=== PATIENT | male | born 1980 ===

== ENCOUNTER 2019-02-18 11:09 | Emergency (ER) | payer OTHER ==
[2019-02-18 11:22] VITALS: BP 120/74
[2019-02-18] MEDS ORDERED: Fluorescein Sodium TOPICAL* 1 MG TEST STRIP OPHTHALMIC ONE (11:34)
[2019-02-18] MEDS ORDERED: Tetracaine 0.5% OPTH.SOL 4 ML* 1 DROP BTL RIGHT EYE ONE (11:34)
--- NOTE | 2019-02-18 11:59 | UC ---
Eye Complaint HPI - HPI Summary HPI Summary: Mr. Barksdale was in [place] recently visiting family over the holidays and was diagnosed with influenza. He has been taking ibuprofen and Tylenol. Yesterday his right eye started to hurt him and he was able to sleep during the night but it hurt worse in the morning. Over the course of the morning it has gradually gotten better and is mild at this point. He states that he feels the pain around his right eye. It hurts a little bit to move it. Now the only time it hurts is when he closes his eye, he has a full feeling around the outside. His vision was unaffected. - History of Current Complaint Chief Complaint: UCGeneralIllness Stated Complaint: FEVER, PAIN IN RT EYE Time Seen by Provider: 02/18/19 11:29 Hx Obtained From: Patient Onset/Duration: Gradual Onset Timing: Hours Severity Initially: Moderate Severity Currently: Mild Pain Intensity: 4 Location of Injury: Periorbital Character: Dull Aggravating Factor(s): Nothing Alleviating Factor(s): Nothing Associated Signs And Symptoms: Positive: Negative - Allergies/Home Medications Allergies/Adverse Reactions: Allergies Allergy/AdvReac Type Severity Reaction Status Date / Time Penicillins Allergy Rash Verified 02/18/19 11:22 Home Medications: Home Medications Rizatriptan Benzoate [Maxalt-Orthopedic Physician Assistant] 10 mg PO ONCE 02/18/19 [History Confirmed 05/08] PMH/Surg Hx/FS Hx/Imm Hx Previously Healthy: Yes Neurological History: Migraine - Surgical History Surgical History: Yes Surgery Procedure, Year, and Place: rt 5th finger - Social History Alcohol Use: Rare Substance Use Type: None Smoking Status (MU): Never Smoked Tobacco Review of Systems All Other Systems Reviewed And Are Negative: Yes Eyes: Positive: Other - Periorbital pain ENT: Positive: Negative Physical Exam - Summary Physical Exam Summary: Is nontoxic in appearance with stable vitals. Triage Information Reviewed: Yes Appearance: Well-Appearing Vital Signs: Initial Vital Signs Temp 97.5 F 02/18/19 11:19 Pulse 75 02/18/19 11:19 Resp 18 02/18/19 11:19 BP 120/74 02/18/19 11:19 Pulse Ox 99 02/18/19 11:19 Vital Signs Reviewed: Yes Eyes: Positive: Conjunctiva Clear - There is no fluorescein pickup. ENT Exam: Normal ENT: Positive: Normal ENT inspection - His sinuses transilluminate Neck exam: Normal Eye Complaint Course/Dx - Course Course Of Treatment: This is an unusual presentation. I think this most likely that he has viral irritation to the sinuses on the right. He has improved greatly during the course of the morning and I recommended symptomatic treatment and follow-up with his worsening. - Differential Dx/Diagnosis Provider Diagnosis: Viral sinusitis Discharge ED - Sign-Out/Discharge Documenting (check all that apply): Patient Departure All imaging exams completed and their final reports reviewed: No Studies - Discharge Plan Condition: Stable Disposition: HOME Patient Education Materials: Rhinosinusitis (ED) Referrals: No Primary Care Phys,NOPCP [Primary Care Provider] - - Billing Disposition and Condition Condition: STABLE Disposition: Home
== END 2019-02-18 12:07 | disposition home or self-care (01) ==
LOC: UCEAST 11:09
DX: J32.9 Chronic sinusitis, unspecified (principal); B97.89 Other viral agents as the cause of diseases classified elsewhere; G43.909 Migraine, unspecified, not intractable, without status migrainosus; Z88.0 Allergy status to penicillin; Z79.899 Other long term (current) drug therapy
CPT/HCPCS: 99211; A9270-GY; G0463

== ENCOUNTER 2019-05-28 11:15 | Emergency (ER) | payer OTHER ==
[2019-05-28 14:22] VITALS: BP 136/82
--- NOTE | 2019-05-28 15:19 | UC ---
Ear Complaint HPI - HPI Summary HPI Summary: 39-year-old male presenting with left ear pain intermittently 5 days. Patient states that the pain comes and goes and is worse in the morning. Denies pain currently. Denies decreased hearing. Denies tinnitus. Denies dizziness. Denies drainage from the ear. Denies fever and chills. Denies recent URI symptoms including sore throat. Does note history of allergies. Denies taking anything for symptom relief. - History of Current Complaint Chief Complaint: UCEar Stated Complaint: LEFT EAR PAIN Hx Obtained From: Patient Pain Intensity: 0 Pain Scale Used: 0-10 Numeric - Allergies/Home Medications Allergies/Adverse Reactions: Allergies Allergy/AdvReac Type Severity Reaction Status Date / Time Penicillins Allergy Rash Verified 05/28/19 11:29 Home Medications: Home Medications Rizatriptan Benzoate [Maxalt-Manager English] 10 mg PO ONCE 02/18/19 [History Confirmed 01/06] PMH/Surg Hx/FS Hx/Imm Hx Previously Healthy: Yes - Surgical History Surgical History: Yes Surgery Procedure, Year, and Place: rt 5th finger - Family History Known Family History: Positive: Non-Contributory - Social History Alcohol Use: Rare Substance Use Type: None Smoking Status (MU): Never Smoked Tobacco Review of Systems All Other Systems Reviewed And Are Negative: Yes Constitutional: Positive: Negative ENT: Positive: Ear Ache - left Respiratory: Positive: Negative Cardiovascular: Positive: Negative Gastrointestinal: Positive: Negative Musculoskeletal: Positive: Negative Neurological/Mental Status: Positive: Negative Physical Exam Triage Information Reviewed: Yes Appearance: Well-Appearing, No Pain Distress, Well-Nourished Vital Signs: Initial Vital Signs Temp 98.8 F 05/28/19 11:27 Pulse 63 05/28/19 11:27 Resp 16 05/28/19 11:27 BP 120/80 05/28/19 11:27 Pulse Ox 100 05/28/19 11:27 Vital Signs Reviewed: Yes Eyes: Positive: Conjunctiva Clear ENT: Positive: Hearing grossly normal, Pharynx normal, Other - left TM intact with mild effusion, no bulging, no erythema Neck exam: Normal Neck: Positive: Supple, Nontender, No Lymphadenopathy Respiratory Exam: Normal Respiratory: Positive: Lungs clear, Normal breath sounds, No respiratory distress, No accessory muscle use Cardiovascular Exam: Normal Cardiovascular: Positive: RRR Neurological: Positive: Alert Psychological: Positive: Age Appropriate Behavior Skin Exam: Normal Ear Complaint Course/Dx - Course Course Of Treatment: Discussed serous otitis media patient and instructed to take OTC decongestant and nasal spray to help alleviate symptoms. Educated on possible duration of symptoms for several weeks up to a couple months. Reassured that symptoms should resolve without treatment but instructed to follow up with PCP for any new or worsening symptoms. Patient voiced understanding and agreed with treatment plan. - Differential Dx/Diagnosis Differential Diagnosis/HQI/PQRI: Otitis Media, URI Provider Diagnosis: Acute serous otitis media, left ear Discharge ED - Sign-Out/Discharge Documenting (check all that apply): Patient Departure All imaging exams completed and their final reports reviewed: No Studies - Discharge Plan Condition: Stable Disposition: HOME Patient Education Materials: Serous Otitis Media (ED) Referrals: Ritika Abbott MD [Primary Care Provider] - If Needed Additional Instructions: As discussed, there is no sign of infection of the ear. The fluid your ear should resolve without treatment over the course of the next several weeks. Over the counter decongestants and nasal sprays may help alleviate symptoms as well. Follow up with your primary care provider if symptoms worsen or do not improve. - Billing Disposition and Condition Condition: STABLE Disposition: Home
== END 2019-05-28 15:15 | disposition home or self-care (01) ==
LOC: UCEAST 11:15
DX: H65.02 Acute serous otitis media, left ear (principal); Z88.0 Allergy status to penicillin
CPT/HCPCS: 99211; G0463